=== PATIENT | male | born 1950 | race Caucasian/White ===

== ENCOUNTER 2018-12-15 06:53 | Inpatient (IN) | payer OTHER ==
[2018-12-04 09:19] LABS: ABSOLUTE BASOPHILS 0.1 thou/uL (0.0-0.2); ABSOLUTE EOSINOPHILS 0.2 thou/uL (0.0-0.7); ABSOLUTE LYMPHOCYTES 1.1 thou/uL (0.8-5.3); ABSOLUTE MONOCYTES 0.5 thou/uL (0.0-1.2); ABSOLUTE NEUTROPHILS 4.7 thou/uL (1.6-8.1); BASOPHILS 0.9 %; HEMATOCRIT 41.7 % (42.0-52.0); HEMOGLOBIN 14.3 gm/dL (14.0-18.0); LYMPHOCYTES 16.4 %; MCH 30.9 pg (26.0-34.0); MCHC 34.3 g/dL (28.0-37.0); MCV 90.1 fL (80.0-100.0); MONOCYTES 7.3 %; MPV 7.6 fl. (7.2-11.1); NUCLEATED RBCS 0 /100WBC; PLATELET COUNT* 230 thou/uL (150-400); POLYS 72.4 %; RBC 4.63 mil/uL (4.50-6.00); RDW-CV 12.7 % (10.5-14.5); WBC 6.5 thou/uL (4.0-11.0)
[2018-12-04 09:25] LABS: APTT 27.3 Seconds (25.0-31.3); PROTIME 10.2 Seconds (9.20-11.50)
[2018-12-04 09:44] LABS: ALBUMIN 3.8 g/dL (3.4-5.0); CREATININE 0.9 mg/dL (0.6-1.3); POTASSIUM 4.4 mmol/L (3.5-5.1); TOTAL BILIRUBIN 0.5 mg/dL (<0.1-1.0)
[2018-12-04 10:39] LABS: ESR (SEDRATE) 7 mm/hr (0-20)
--- NOTE | 2018-12-04 11:24 | EKG ---
[place] [address] ELECTROCARDIOGRAM REPORT Name: SUJIT MCKENNA Room: PRE IN [facility]#: [id number] Admission: Attend Phys: Alexander Saini Discharge: Date of : 54 Report #: [id number] THIS REPORT FOR: //name// [facility] Test Date: 2018-12-04 Test Time: 09:42:18 Pat Name: SUJIT MCKENNA Department: Room: Gender: M Project Administrative Assistant: : 1950 Requested By: Manoj Cortez Order Number: [id number] Reading MD: Kingsley Prado Measurements Intervals [place] Rate: 66 P: 47 OK: 189 QRS: 33 QRSD: 99 T: 33 QT: 413 QTc: 433 Interpretive Statements Sinus rhythm Minimal ST elevation, inferior leads No previous ECG available for comparison Electronically Signed On 12-04-2018 11:24:17 CDT by Kingsley Prado [email or web address] <ELECTRONICALLY SIGNED> By: Kingsley Prado MD, [facility] 12/04/18 1124 [id number] Kingsley Prado MD, FACC /EPI
[~2018-12-15] VITALS: Ht 172.7 cm; Wt 79.4 kg
--- NOTE | ~2018-12-15 | OP ---
[facility] [address] [place] [address] OPERATIVE REPORT Name: SUJIT MCKENNA Room: [address] IN .R.#: [id number] Admission: 12/15/18 Attend Phys: Alexander Saini Discharge: Date of : 54 Report #: [id number] THIS REPORT FOR: //name// CC: Manoj Cortez [facility] physician/PCP Tyrone Tabares DATE OF SERVICE: 12/15/2018 PREOPERATIVE DIAGNOSIS: Advanced degenerative joint disease, left hip. POSTOPERATIVE DIAGNOSIS: Advanced degenerative joint disease, left hip. PROCEDURE: Left total hip arthroplasty. SURGEON: Manoj Cortez DO CERTIFIED REGISTERED LOCKSMITH: Abel Conteh DO SECOND VP CLINICAL: Gurinder Melara DO ESTIMATED BLOOD LOSS: 400 mL. ANESTHESIA: General. COMPLICATIONS: None. DRAINS: None. SPECIMEN REMOVED: None. ORTHOPEDIC IMPLANTS: Biomet total hip arthroplasty system. 1. Size 11 standard offset Taperloc femoral stem. 2. A 58 mm acetabular shell with two acetabular screws, 25 mm for both. 3. A 40 mm high wall E1 polyethylene liner. 4. A 40 mm ceramic head with -3 neck length. CONDITION: The patient is stable to PACU. INDICATIONS FOR PROCEDURE: The patient is a pleasant 68-year-old male to my clinic regarding left hip pain except for quite some time. X-rays showed severe end-stage degenerative joint disease of the left hip. This was consistent with his symptoms. He had failed extensive conservative treatment including anti-inflammatory medications, activity modifications and home exercise program. Based on his x-ray findings and failed conservative treatment, I discussed potential benefit of left total hip arthroplasty. I discussed procedure, risks, [address] [address] OPERATIVE REPORT Name: SUJIT MCKENNA Room: [address] [place] ..#: [id number] Admission: 12/15/18 Attend Phys: Alexander Saini Discharge: Date of : 54 Report #: [id number] benefits, complications, indications in detail with him. Risks discussed include but not limited to infection, neurovascular injury, hardware failure, fracture, dislocation, leg length discrepancy, no improvement in symptoms and need for further surgery, DVT, PE, and/or anesthesia complications. He did express understanding and wished to proceed with surgery. DESCRIPTION OF PROCEDURE: After consent was obtained, the patient was taken to the operative suite and placed in the supine position on operating room table. He was given the benefit of general anesthesia. All bony prominences were well padded. Both feet were placed in well-padded traction boots. Left hip was then sterilely prepped and draped in usual fashion. Preop timeout was obtained to confirm the correct patient, procedure and operative site. Surgery began with a standard anterior approach incision approximately 10 cm in length. Cautery dissection was taken down to the level of the tensor fascia. A new knife was used and the fascia was incised in line with the skin incision. At this time, the tensor fascia muscle belly was reflected off of the fascia and the interval between the sartorius and the tensor fascia was encountered. Deeper dissection exposed the circumflex vessels. These were isolated and pretreated with Aquamantys followed by ligation with electrocautery. The anterior capsule was then exposed utilizing Vela elevator and indirect head of the rectus was reflected off of the anterior hip capsule. A #7 retractor was placed superiorly followed by #6 inferiorly and a #9 of the anterior acetabulum. The capsule was then pretreated with Aquamantys and anterior capsulectomy was performed. He did have a normal appearing joint effusion. He had severe eburnation throughout the femoral head and neck as well as the acetabulum. The femoral neck cut was then made one fingerbreadth above the lesser trochanter. Femoral head and neck were then removed. The acetabulum was exposed. Osteophytes were removed with a rongeur and labrum was excised with electrocautery. We then began sequential reaming with a size 51 shell, this progressed up to a size 57, this gives good purchase as well as good bleeding bone. Final reaming and cup implantation was done under x-ray visualization. We then impacted the final size 58 acetabular shell, this did had good purchase. Confirmation of good inclination and version was confirmed with x-ray and utilizing our guide. Two acetabular screws were then placed both 25 mm, both had good purchase. The final 40 mm liner was then impacted into place to appropriate position and locked in place. At this time, attention was turned to the proximal femur. A #5 retractor was placed of the medial calcar. The hip was gradually externally rotated, extended and adducted while releases were performed exposing the proximal femur. A #8 retractor was placed behind the greater trochanter. The femoral hook was then used to elevate the proximal femur up into the wound the skin was great exposure. Box osteotome was used followed by rat tail rasp and sequential broaching of the femur, this progressed up to size 11, this gave us good fit and fill of the proximal femur. A trial reduction was performed with a -3 neck length. X-rays taken at this point to confirm good position of all hardware and equal leg lengths. There was again [facility] [address] [place] [address] OPERATIVE REPORT Name: SUJIT MCKENNA Room: [address] IN [facility]#: [id number] Admission: 12/15/18 Attend Phys: Alexander Saini Discharge: Date of : 54 Report #: [id number] dislocated, the trial components were removed, final size 11 standard offset Taperloc femoral stem was then impacted into place to appropriate depth, this gave us solid purchase in the proximal femur. Trial reduction again performed and a -3 neck length was chosen. The final -3 neck length, 40 mm ceramic head was impacted on a clean trunnion. The hip was reduced with good reduction maneuver. Final x-rays were then taken, noting good position of all hardware and equal leg lengths with no acute obvious intraoperative complications. The wound was then thoroughly irrigated with sterile saline. Ortho cocktail was injected. Tensor fascia was closed with a running Quill suture. Subcutaneous tissue closed with 2-0 Vicryl in interrupted fashion followed by running Monocryl stitch on the skin. This covered with Dermabond, which was allowed to dry and sterile dressing. He did tolerate the procedure well without complications. He was taken to recovery in stable condition. All needle and sponge counts correct x 2 at the end of the procedure. He will be admitted postoperative pain control. Anticipate discharge home tomorrow if he is doing well. Given appropriate DVT prophylaxis and analgesia p.r.n. and we will see how therapy progresses tomorrow. By: [id number] Cortez DO /alondra
[~2018-12-15 06:53] MED LIST: ACETAMINOPHEN-1 EAC1 PO; ALEVE220 MG PO
[2018-12-15 07:45] VITALS: BP 118/70
[2018-12-15 15:05] VITALS: BP 135/69
[2018-12-15 16:00] VITALS: BP 156/66
[2018-12-15 20:00] VITALS: BP 118/66
[2018-12-16 04:00] VITALS: BP 119/65
[2018-12-16 04:11] LABS: HEMOGLOBIN 11.6 gm/dL (14.0-18.0); MCH 31.1 pg (26.0-34.0); MCHC 34.2 g/dL (28.0-37.0); MCV 90.8 fL (80.0-100.0); MPV 8.2 fl. (7.2-11.1); NUCLEATED RBCS 0 /100WBC; PLATELET COUNT* 209 thou/uL (150-400); RBC 3.75 mil/uL (4.50-6.00); RDW-CV 12.5 % (10.5-14.5); WBC 15.3 thou/uL (4.0-11.0)
[2018-12-16 04:35] LABS: CALCIUM 8.2 mg/dL (8.5-10.1); CREATININE 0.8 mg/dL (0.6-1.3); POTASSIUM 4.5 mmol/L (3.5-5.1)
[2018-12-16 05:47] LABS: ABSOLUTE LYMPHOCYTES 0.9 thou/uL (0.8-5.3); ABSOLUTE MONOCYTES 0.9 thou/uL (0.0-1.2); ABSOLUTE NEUTROPHILS 13.5 thou/uL (1.6-8.1); ANISOCYTOSIS 1+; PLATELET ESTIMATE ADEQUATE; POIKILOCYTOSIS 1+
[2018-12-16 07:30] VITALS: BP 96/39
[2018-12-16 16:35] VITALS: BP 111/62
[2018-12-16 20:00] VITALS: BP 100/53
[2018-12-17 03:59] LABS: ABSOLUTE MONOCYTES 1.1 thou/uL (0.0-1.2); ABSOLUTE NEUTROPHILS 8.6 thou/uL (1.6-8.1); BASOPHILS 0.2 %; EOSINOPHILS 0.3 %; HEMATOCRIT 33.7 % (42.0-52.0); HEMOGLOBIN 11.5 gm/dL (14.0-18.0); LYMPHOCYTES 9.5 %; MONOCYTES 10.3 %; MPV 8.4 fl. (7.2-11.1); NUCLEATED RBCS 0 /100WBC; PLATELET COUNT* 193 thou/uL (150-400); POLYS 79.7 %; RDW-CV 12.8 % (10.5-14.5); WBC 10.8 thou/uL (4.0-11.0)
[2018-12-17 07:30] VITALS: BP 99/64
[2018-12-17 11:17] VITALS: BP 99/64
[2018-12-17] MEDS ORDERED: THERA M PLUS T1 EAC2 PO (11:29)
[2018-12-17] MEDS ORDERED: DOK PLUS TABLE1 EACH PO (11:30)
[2018-12-17] MEDS ORDERED: OXYCODONE HCL 55 MG PO (11:30)
[2018-12-17] MEDS ORDERED: ELIQUIS5 MG PO (11:30)
[2018-12-17 13:25] VITALS: BP 99/64
== END 2018-12-17 15:30 | disposition home health service (06) | DRG 470 ==
LOC: M.TBA 06:53 → M.ORTHSURG 06:53 → M.PRE 09:56 → M.ORTHSURG 14:45 → M.PRE 12-16 08:31 → M.ORTHSURG 12-17 15:30
PROVIDERS: Family Medicine; Orthopaedic Surgery; ADMIT Internal Medicine
PROC: 0SRB03Z Replacement of Left Hip Joint with Ceramic Synthetic Substitute, Open Approach (ICD-10-PCS; principal; 2018-12-15)
DX: M16.12 Unilateral primary osteoarthritis, left hip (principal); D62 Acute posthemorrhagic anemia; G89.29 Other chronic pain; M54.9 Dorsalgia, unspecified; Z79.899 Other long term (current) drug therapy; Z98.42 Cataract extraction status, left eye; Z98.41 Cataract extraction status, right eye; Z84.89 Family history of other specified conditions; Z87.891 Personal history of nicotine dependence